=== PATIENT | female | born 1990 | race Caucasian/White ===

== ENCOUNTER 2023-08-22 11:22 | Emergency (ER) | payer MEDICAID ==
[~2023-08-22] VITALS: Ht 160 cm; Wt 69.1 kg
[~2023-08-22 11:22] MED LIST: NO HOME MEDS
[2023-08-22 12:04] VITALS: BP 129/92; PULSE 76; RESP 18; O2SAT 99
--- NOTE | 2023-08-22 12:21 | NUR ---
pt is talking without any signs of distress pt has no history of heart or respiratory issues and pulse is wnl
--- NOTE | 2023-08-22 12:25 | NUR ---
CORD CUTTER ASSESSMENT REVIEWED BY JOE RN; APPROVED
[2023-08-22] MEDS ORDERED: bacitracin 15gm ointment TP ONE (13:00)
[2023-08-22] MEDS ORDERED: ibuprofen 200mg tablet PO ONE (13:00)
[2023-08-22] MEDS ORDERED: IBUP-1984 PO (13:16)
[2023-08-22] MEDS ORDERED: BACI1PAC7 TP (13:16)
[2023-08-22 13:45] VITALS: TEMP 97.6
== END 2023-08-22 13:45 | disposition home or self-care (01) ==
LOC: ER 11:23
DX: S93.401A Sprain of unspecified ligament of right ankle, initial encounter (principal); F32.A Depression, unspecified; X58.XXXA Exposure to other specified factors, initial encounter; Y93.89 Activity, other specified; Y92.89 Other specified places as the place of occurrence of the external cause; Y99.8 Other external cause status
CPT/HCPCS: 73610; 73630; 99284; L1930; A6449